=== PATIENT | male | born 1960 | race Caucasian/White ===

== ENCOUNTER 2017-06-01 10:22 | Day surgery (SDC) | payer OTHER ==
[2017-05-28 11:38] VITALS: BMI 25.8
[2017-06-01] MEDS ORDERED: LEVOFLOXACIN 500 MG IVPB 100 ML IVPB ONE (12:32)
[2017-06-01] MEDS ORDERED: MIDAZOLAM HCL 2 MG/2 ML SINGLE DOSE VIAL ONE (13:18)
[2017-06-01] MEDS ORDERED: PROPOFOL 20 ML ONE (13:18)
[2017-06-01] MEDS ORDERED: LEVOFLOXACIN 500 MG PREMIX BAG IVPB ONE (13:20)
[2017-06-01] MEDS ORDERED: ONDANSETRON 4 MG/2 ML VIAL IVPUSH PRN (14:00)
[2017-06-01] MEDS ORDERED: PROMETHAZINE HCL 25 MG/1 ML VIAL IVPUSH PRN (14:00)
[2017-06-01] MEDS ORDERED: LACTATED RINGERS SOLUTION 1,000 ML IV SCH (14:00)
[2017-06-01 14:54] VITALS: TEMP 98.5
--- NOTE | 2017-06-01 15:55 | OP ---
Operative Note - Note: Operative Date: 06/01/17 Pre-Operative Diagnosis: right renal stone Operation: right eswl Findings: 8mm right mid-pole ston Post-Operative Diagnosis: Same as Pre-op Surgeon: Hong Deluca Anesthesia: General
[2017-06-01 16:33] VITALS: BP 125/70; PULSE 50
--- NOTE | 2017-06-02 14:45 | OP ---
DATE OF OPERATION: 06/01/2017 PREOPERATIVE DIAGNOSIS: Right renal stone. POSTOPERATIVE DIAGNOSIS: Right renal stone. PROCEDURE: Right extracorporeal shock wave lithotripsy. ATTENDING SURGEON: Milan Arguello MD ANESTHESIA: General. DESCRIPTION OF PROCEDURE: The patient was brought in the operating room and placed in the supine position on the operating room table. Ultrasonography and fluoroscopy were performed. An 8-mm right lower pole stone was identified. General anesthesia was then administered as well as antibiotics. Levaquin 500 mg was given intravenously. At this point, extracorporeal shock wave lithotripsy was started with 3000 impulses at 20 joules of power administered to the stone. Excellent fragmentation of the stone was noted under real time ultrasonography and fluoroscopy. No complications were noted. Patient tolerated the procedure very well. MILAN ARGUELLO M.D. /[id number]
== END 2017-06-01 16:33 | disposition home or self-care (01) ==
LOC: JASU-SURG 10:22
PROVIDERS: ATTEND Urology
PROC: 0TF3XZZ Fragmentation in Right Kidney Pelvis, External Approach (ICD-10-PCS; principal; 2017-06-01 12:00)
DX: N20.0 Calculus of kidney (principal)
CPT/HCPCS: 94760

== ENCOUNTER 2018-05-31 10:04 | Day surgery (SDC) | payer OTHER ==
[2018-05-28 16:14] VITALS: BMI 25.8
[2018-05-31] MEDS ORDERED: MIDAZOLAM HCL 2 MG/2 ML SINGLE DOSE VIAL ONE (12:50)
--- NOTE | 2018-05-31 14:41 | OP ---
Operative Note - Note: Operative Date: 05/31/18 Pre-Operative Diagnosis: Left kidney stone Operation: Left ESWL Findings: 6 mm lower pole Left kidney stone Post-Operative Diagnosis: Same as Pre-op Surgeon: Hong Deluca (no intraoperatived complication) Anesthesia: Fractional Estimated Blood Loss (mls): 0
[2018-05-31 14:58] VITALS: BP 117/70; PULSE 60
[2018-05-31 18:14] VITALS: TEMP 98.4
--- NOTE | 2018-05-31 22:33 | OP ---
DATE OF OPERATION: 05/31/2018 PREOPERATIVE DIAGNOSIS: Left renal stone. POSTOPERATIVE DIAGNOSIS: Left renal stone. PROCEDURE: Left extracorporeal shock wave lithotripsy. ATTENDING: Milan Arguello MD ANESTHESIA: Fractional. DESCRIPTION OF OPERATION: The patient was brought in the operating room, placed in supine position on the operating room table. Ultrasonography and fluoroscopy were performed. A 6-mm left lower pole stone was identified. At this point, anesthesia and preoperative antibiotics were administered. Shock wave lithotripsy was then performed; 3000 impulses at 17 joules of power were administered to the stone with excellent fragmentation noted under real-time ultrasonography and fluoroscopy. No complications noted. The disposition of the patient was to the recovery room. MILAN ARGUELLO M.D. [id number]
== END 2018-05-31 15:00 | disposition home or self-care (01) ==
LOC: JASU-SURG 10:04
PROVIDERS: ATTEND Urology
PROC: 0TF4XZZ Fragmentation in Left Kidney Pelvis, External Approach (ICD-10-PCS; principal; 2018-05-31 12:30)
DX: N20.0 Calculus of kidney (principal)
CPT/HCPCS: 94760

== ENCOUNTER 2019-12-12 08:51 | Day surgery (SDC) | payer OTHER ==
[2019-12-08 13:57] VITALS: BMI 27.7
[2019-12-12] MEDS ORDERED: MIDAZOLAM HCL 2 MG/2 ML SINGLE DOSE VIAL ONE (11:28)
[2019-12-12] MEDS ORDERED: LIDOCAINE HCL/PF 2% SDV 5ML VIAL ONE (11:28)
[2019-12-12] MEDS ORDERED: PROPOFOL 20 ML ONE (11:28)
[2019-12-12 12:11] VITALS: TEMP 98.2
--- NOTE | 2019-12-12 12:45 | OP ---
Operative Note - Note: Operative Date: 12/12/19 Pre-Operative Diagnosis: Left renal stone Operation: Left ESWL Findings: 6 mm lower pole Left renal stone Post-Operative Diagnosis: Same as Pre-op Anesthesia: Fractional Estimated Blood Loss (mls): 0 Operative Report Dictated: Yes
[2019-12-12 14:36] VITALS: BP 112/74; PULSE 61
--- NOTE | 2019-12-13 08:18 | OP ---
DATE OF OPERATION: 12/12/2019 PREOPERATIVE DIAGNOSIS: Left renal stone. POSTOPERATIVE DIAGNOSIS: Left renal stone. PROCEDURE PERFORMED: Left extracorporeal shock wave lithotripsy. SURGEON: Milan Arguello MD ANESTHESIA: Fractional. DESCRIPTION OF PROCEDURE: The patient was brought to the operating room and placed in the supine position on the operating room table. Ultrasonography and fluoroscopy were performed. A 6-mm left lower pole stone was identified. At this point, anesthesia and preoperative antibiotics were administered. Shock wave lithotripsy was then performed. Excellent fragmentation of the stone was noted under real time ultrasonography and fluoroscopy. No complications were noted. The patient tolerated the procedure very well. MILAN ARGUELLO M.D. /[id number]
== END 2019-12-12 13:30 | disposition home or self-care (01) ==
LOC: JASU-SURG 08:51
PROVIDERS: ATTEND Urology
PROC: 0TF4XZZ Fragmentation in Left Kidney Pelvis, External Approach (ICD-10-PCS; principal; 2019-12-12 11:45)
DX: N20.0 Calculus of kidney (principal); E11.9 Type 2 diabetes mellitus without complications; Z79.84 Long term (current) use of oral hypoglycemic drugs
CPT/HCPCS: 82962

== ENCOUNTER 2022-06-23 04:00 | Day surgery (SDC) | payer BC ==
[2022-06-20 15:57] VITALS: BMI 27.1
[2022-06-23] MEDS ORDERED: MIDAZOLAM HCL 2 MG/2 ML SINGLE DOSE VIAL ONE (13:03)
[2022-06-23 14:07] VITALS: RESP 18; TEMP 98
[2022-06-23 14:21] VITALS: BP 130/71; PULSE 54
== END 2022-06-23 14:30 | disposition home or self-care (01) ==
LOC: JASU-SURG 04:00
PROVIDERS: ATTEND Urology
PROC: 0TF4XZZ Fragmentation in Left Kidney Pelvis, External Approach (ICD-10-PCS; principal; 2022-06-23 12:00)
DX: N20.0 Calculus of kidney (principal)
CPT/HCPCS: 82962

== ENCOUNTER 2024-03-14 04:05 | Day surgery (SDC) | payer BC ==
[2024-03-14 07:30] VITALS: RESP 20; TEMP 97.7; BMI 27.0
[2024-03-14] MEDS ORDERED: PROPOFOL 20 ML ONE (14:48)
[2024-03-14] MEDS ORDERED: MIDAZOLAM HCL 2 MG/2 ML SINGLE DOSE VIAL ONE (14:48)
[2024-03-14] MEDS ORDERED: FENTANYL CITRATE/PF 50 MCG/ML VIAL ONE (14:48)
[2024-03-14 17:20] VITALS: BP 108/65; PULSE 60
== END 2024-03-14 16:50 | disposition home or self-care (01) ==
LOC: JASU-SURG 04:05
PROVIDERS: ATTEND Urology
PROC: 0TF4XZZ Fragmentation in Left Kidney Pelvis, External Approach (ICD-10-PCS; principal; 2024-03-14 14:30)
DX: N20.0 Calculus of kidney (principal)
CPT/HCPCS: 82962